=== PATIENT | male | born 1960 | race African-American/Black ===

== ENCOUNTER 2017-03-03 12:03 | Emergency (ER) | payer OTHER ==
[~2017-03-03] VITALS: Ht 182.9 cm; Wt 137.9 kg
--- NOTE | ~2017-03-03 | EKG ---
[address] [address] ELECTROCARDIOGRAM REPORT Name: HERI BURNS [id number] Admission: 03/03/17 Attend Phys: Discharge: 03/03/17 Date of : 58 Report #: [id number] THIS REPORT FOR: //name// [facility] ED Test Date: 2017-03-03 Test Time: 12:56:02 Pat Name: HERI BURNS Department: Room: Gender: Skein Yarn Drier: John MERCADO : 1960 Requested By: Munir Ortega Order Number: [id number] MD: Dwaine Polk Measurements Intervals [place] Rate: 94 P: [place]: QRS: 2 QRSD: 96 T: 195 QT: 364 QTc: 456 Interpretive Statements Atrial fibrillation Ventricular premature complex Abnormal T, consider ischemia, diffuse leads No previous ECG available for comparison Electronically Signed On 03-03-2017 21:18:22 HOTEL DIRECTOR by Dwaine Polk [email or web address] <ELECTRONICALLY SIGNED> By: Dwaine Polk MD 03/03/17 [id number] MD MARILYN Segura
[2017-03-03 12:52] LABS: ABSOLUTE NEUTROPHILS 3.4 thou/uL (1.4-8.2); BASOPHILS 0.8 % (0.0-2.0); EOSINOPHILS 2.3 % (0.0-3.0); HEMATOCRIT 40.9 % (42.0-52.0); HEMOGLOBIN 13.2 gm/dL (14.0-18.0); LYMPHOCYTES 35.5 % (24.0-44.0); MCH 27.6 pg (26.0-34.0); MCHC 32.3 g/dL (28.0-37.0); MCV 85.3 fL (80.0-100.0); MONOCYTES 7.3 % (1.0-8.0); PLATELET COUNT 191 thou/uL (150-400); POLYS 54.1 % (36.0-66.0); RDW 13.3 % (10.5-14.5); WBC 6.3 thou/uL (4.0-11.0)
[2017-03-03 12:52] LABS: URINE BILIRUBIN NEGATIVE (Negative); URINE BLOOD 2+ (Negative); URINE COLOR YELLOW; URINE GLUCOSE-RANDOM* NEGATIVE (Negative); URINE KETONES NEGATIVE (Negative); URINE LEUKOCYTES-REFLEX NEGATIVE (Negative); URINE PROTEIN (DIPSTICK) 3+ (Negative); URINE SPECIFIC GRAVITY 1.025 (1.003-1.035)
[2017-03-03 12:53] LABS: MANUAL DIFF NO
[2017-03-03 13:02] LABS: ANION GAP 9 mmol/L (7-16); BUN 19 mg/dL (7-18); CALCIUM 9.2 mg/dL (8.5-10.1); CHLORIDE 107 mmol/L (98-107); CO2 25 mmol/L (21-32); CREATININE 1.2 mg/dL (0.7-1.3); GLUCOSE 170 mg/dL (74-106); SODIUM 141 mmol/L (136-145)
[2017-03-03 13:07] LABS: CASTS None Seen /LPF (None Seen); CRYSTALS None Seen /LPF (None Seen); SQUAMOUS None Seen /LPF (0-3); URINE RBC 0-2 Rare /HPF (0-2); URINE WBC-REFLEX None Seen /HPF (0-5)
[2017-03-03 13:10] LABS: ALBUMIN 3.5 g/dL (3.4-5.0); ALKALINE PHOSPHATASE 105 U/L (46-116); SGOT 29 U/L (15-37); SGPT 37 U/L (30-65); TOTAL BILIRUBIN 0.3 mg/dL (<0.1-1.0); TOTAL PROTEIN 7.5 g/dL (6.4-8.2); TROPONIN-I < 0.04 ng/mL (<0.06)
[2017-03-03] MEDS ORDERED: VENTOLIN HFA 1818 GM INH (13:24)
[2017-03-03] MEDS ORDERED: PROTONIX40 M1 PO (13:24)
[2017-03-03] MEDS ORDERED: METFORMIN HCL500 MG PO (13:25)
[2017-03-03] MEDS ORDERED: ATORVASTATIN CA40 MG PO (13:25)
[2017-03-03] MEDS ORDERED: COZAAR 25 MG TA25 M1 PO (13:25)
[2017-03-03] MEDS ORDERED: AMARYL2 MG PO (13:25)
[2017-03-03] MEDS ORDERED: ASPIRIN81 M2 PO (13:26)
[2017-03-03] MEDS ORDERED: ATENOLOL 100MG100 MG PO (13:26)
[2017-03-03] MEDS ORDERED: NORVASC10 MG PO (13:26)
[2017-03-03 14:45] VITALS: BP 140/100
[2017-03-03] MEDS ORDERED: POTASSIUM CHLO10 MEQ PO (14:47)
[2017-03-03] MEDS ORDERED: KEFLEX500 M1 PO (14:47)
== END 2017-03-03 15:00 | disposition home or self-care (01) ==
LOC: ER 12:03
PROVIDERS: Physician Assistant
DX: N39.0 Urinary tract infection, site not specified (principal); E87.6 Hypokalemia; I10 Essential (primary) hypertension; E11.9 Type 2 diabetes mellitus without complications; F17.210 Nicotine dependence, cigarettes, uncomplicated; F10.99 Alcohol use, unspecified with unspecified alcohol-induced disorder